=== PATIENT | female | born 1950 | race Caucasian/White ===

== ENCOUNTER 2024-12-14 09:30 | Outpatient (AMB) | payer BC, SELFPAY ==
--- OUTSIDE RECORDS SUMMARY | 2024-12-13 09:45 | XMS_ITS | Encounter Summary ---
Author Organization [facility] Address [address] [place] [address] Care Team Providers Care Windsmith Name Role Phone Isabel Butler MD Primary Care Provider Reason for Visit * Reason Comments COPD Encounter Details Date Type Department Care Team ([facility] Contact Info) Description 12/13/2024 9:45 AM EDT Office Visit Pulmonolgy - [place] [address] [phone] Ade Ashley MD [address] (Primary Dx); Chronic obstructive pulmonary disease, unspecified COPD type (CMS/HCC V24, CMS/HCC V28); Ex-smoker Social History Tobacco Use Types Packs/Day Years Used Date Smoking Tobacco: Former Cigarettes 0.3 30 0 04/06/1965 - 04/06/1995 Smokeless Tobacco: Never Tobacco Cessation:Counseling Given: Not Answered Alcohol Use Standard Drinks/Week Comments No 0 (1 standard drink = 0.6 oz pur e alcohol) Housing Instability Answer Date Recorde d Are you worried that in the next 2 months you may not have stable housing? No 08/10/2024 Food Access & Nutrition Answer Date Rec orded Do you have access to a vari ety of food including fruits and vegetables? Yes 08/10/2024 Access to Healthcare Answer Date Record ed Within the last 3 months, ho w many times did you visit the emergency department for your medical care? 0 08/10/2024 Health Literacy Answer Date Recorded How often do you need to hav e someone help you when you read instructions, pamphlets, or other written material from your doctor or pharmacy? Never 08/10/2024 Caregiver: How often do you need to have someone help you when you read instructions, pamphlets, or other written material from your doctor or pharmacy? Not on file 08/10/2024 Financial Risk Answer Date Recorded How hard is it for you to pa y for the very basics like food, housing, medical care, and air conditioning / heating? Not very hard 08/10/2024 Transportation Answer Date Recorded Has the lack of transportati on kept you from meetings, work, or from getting things needed for daily living? No Has the lack of transportati on kept you from medical appointments or from getting medications? No 08/10/2024 Social Isolation Answer Date Recorded How often do you feel lonely or isolated from th ose around you? Never 08/10/2024 Food Risk Answer Date Recorded Within the past 12 months we worried whether our food would run out before we got money to buy more. Never true 08/10/2024 Within the past 12 months th e food we bought just didn't last and we didn't have money to get more. Never true 08/10/2024 Dependent Care Answer Date Recorded Do you need help finding or paying for care for your loved ones. For example, child study team director or elderly care for an older adult? No 08/10/2024 Education Answer Date Recorded Do you think completing more education or training, like finishing a GED, going to college, or learning a trade, would be helpful for you? N/A 08/10/2024 Employment and Income Answer Date Recor ded During the last four weeks, have you been actively looking for work? No 08/10/2024 Living Situation Answer Date Recorded What is your living situation? 0 08/10/2024 Interpersonal Safety Answer Date Record ed Physical Abuse 09/06/2024 Verbal Abuse 09/06/2024 Comments Unknown Sex and Gender Information Value Date Recorded Sex Assigned at Female 08/15/2024 3:20 PM EDT Legal Sex Female 8:38 AM EST Gender Identity Female 08/15/2024 3:20 PM EDT Sexual Orientation Straight 08/15/2024 3: 20 PM EDT documented as of this encounter Last Filed Vital Signs Vital Sign Reading Time Taken Comments Blood Pressure 151/61 12/13/2024 9:45 AM EDT Pulse 60 12/13/2024 9:45 AM EDT Temperature - - Respiratory Rate 18 12/13/2024 9:45 AM EDT Oxygen Saturation 100% 12/13/2024 9:45 AM EDT Inhaled Oxygen Concentration - - Weight 48.3 kg (106 lb 6.4 oz) 12/13/2024 9:45 A M EDT Height - - Body Mass Index 18.26 11/29/2024 8:30 AM EDT documented in this encounter Progress Notes * Ade Ashley MD - 12/13/2024 9:45 AM EDT ADULT PULMONARY Followup CHIEF COMPLAINT : COPD Last seen 07/07/24 HISTORY OF PRESENT ILLNESS: Ebonie Ross is a 74 y.o. old, ex smoker @ 13 ppy, female h/o COPD w/ emphysema, lung nodules, HTN, hypothyroidism, seizure disorder, osteoporosis, compression T11 & L1and depression. Her chest ct, on 02/15/2018, several GGO nodules, largest RUL 7 x 12 mm nodules. Patient had never been seenby fruit stuffer. Patient with minimum symptom. Patient follow up chest CT, 05/27/24 increase in # & sizes of the various lung nodules. Central airways are patent. Multiple small focal lucencies in bilateral lungs, increased from 2018, reflecting progression of the centrilobular emphysema. Several groundglass nodules in the right lobe, some of them mildly increased in size, for example the largest measuring 1.7 x 1.5 cm (2:61), enlarged from prior re-measurements of 1.3 x 1.2 cm. Additionally scattered groundglass nodules, for example in the right lower lobe measures 0.8 cm (2:169), increased from prior measurement of 0.5 cm. Small group of adjacent solid nodules in the left upper lobe, largest measuring 0.6 cm (2:121), some of them probably mucous plugging, new from 2018. No gross mediastinal/hilar adenopathy. COVID vaccinations: Moderna/Pfizer. Ex Smoker: Age 18 to 45, @ 1/2 pack a day, @ 13 ppy. Extensive 2nd hand smoke exposure. No inhaled marijuana or recreational drug use. 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 No occupation chemical or fume exposure. No tuberculosis or asbestos exposure. Pets: None. FH: Father with lung cancer. Sister with lymphoma. M aternal grandfather with colon cancer. Since last seen: -Seeing Hematology & Oncology Dr. Ortega. -Hospitalized at [facility] (09/05 to 09/06/2024) for seizure. Awaiting for neurology appointment. -Awaiting for official CTX surgery re visit. -Got a call 12/12/24, by CTX surgery, I wanted to discuss this with her specifically to review the options for this finding which include resection versus ongoing surveillance. I reviewed the image with Dr. Howe who did feel this could be resected should the patient decide to do so. -Follow-up visit by IP, Dr. Cannon, on 10/18/2024 referral back to CTX surgery. -In September patient had seizure and the AED change no issue with medication weight loss. - CT chest, 09/29/24, increased RUL nodule 1.5 x 1.3 cm. There is also other nodule RUL 4 mm and 7 mm. RLL 6 mm, LLL 9 mm,. No gross mediastinal hilar adenopathy. -Was seen by CTX surgeon, Dr. Howe on 08/15/24, recommend follow-up CT chest. -Seen by IP, Dr. Cannon, on 07/22/2024, and was referred to CTX surgeon. - Blood work, 07/11/2024 WBC 5.1, hemoglobin 14.6, eosinophil count 1.8, ESR 10, IgE 7.6, QuantiFERONTB serology negative. Negative Aspergillus flavus & Aspergillus fungatius antibody. Negative recommended. REVIEW OF SYSTEMS: Review of Systems Constitutional: Negative for chills, decreased appetite, diaphoresis, fever, malaise/fatigue and night sweats. HENT: Negative for congestion. Cardiovascular: Negative for chest pain, dyspnea on exertion, irregular heartbeat and leg swelling. Respiratory: Negative for cough, hemoptysis, shortness of breath, snoring, sputum production and wheezing. Endocrine: Negative for cold intolerance and heat intolerance. Skin: Negative for rash. Gastrointestinal: Negative for abdominal pain, constipation, diarrhea and dysphagia. Genitourinary: Negative for dysuria. ALLERGIES: Allergies Allergen Reactions Codeine GI intolerance and Unknown Morphine Nausea And Vomiting and Unknown Low blood pressure Penicillins Rash ACTIVE MEDICATIONS: Outpatient Medications Marked as Taking for the 12/13/24 encounter (Office Visit) with Ade Ashley MD Medication Sig Dispense Refill amLODIPine (NORVASC) 2.5 mg tablet Take 1 tablet (2.5 mg total) by mouth 1 (one) time each day. (Patient taking differently: Take 3 tablets (7.5 mg total) by mouth 1 (one) time each day.) 90 each 0 PROVIDER ATTESTS THAT THE MEDICATION LIST WAS OBTAINED, REVIEWED AND UPDATED. PAST MEDICAL HISTORY: Patient Active Problem List Diagnosis Date Noted Hypocalcemia 09/20/2024 Hyponatremia 09/20/2024 Witnessed seizure-like activity ([facility] V24, [facility] V28) 09/05/2024 Anxiety 08/17/2024 Fracture, Col[place], right, closed 09/27/2021 Essential hypertension 01/01/2021 Hypothyroidism 06/12/2020 Seizure disorder ([facility] V24, [facility] V28) 02/10/2019 Maxillary fracture ([facility] V24, [facility] V28) 03/16/2018 Major depression in partial remission ([facility] V24) 12/30/2017 Pulmonary nodules 12/30/2017 Osteoporosis 12/30/2017 Heart murmur 11/21/2013 Left carotid bruit 11/21/2013 Past Surgical History: Procedure Laterality Date CARPAL TUNNEL RELEASE Right 02/29/2020 PROCEDURE: HISTORICAL CARPAL TUNNEL REL; COMMENT: Dr. Reyes CHOLECYSTECTOMY PROCEDURE: HISTORICAL CHOLECYSTECTOMY; COMMENT: jermain timothy OTHER SURGICAL HISTORY PROCEDURE: HISTORY OTHER; COMMENT: toe surgery, multiple WRIST SURGERY Right 09/30/2021 PROCEDURE: HISTORICAL WRIST SURGERY; COMMENT: Distal Radius Fracture Dr. Amy WALKER Past Surgical History: Procedure Laterality Date CARPAL TUNNEL RELEASE Right 02/29/2020 PROCEDURE: HISTORICAL CARPAL TUNNEL REL; COMMENT: Dr. Reyes CHOLECYSTECTOMY PROCEDURE: HISTORICAL CHOLECYSTECTOMY; COMMENT: jermain timothy OTHER SURGICAL HISTORY PROCEDURE: HISTORY OTHER; COMMENT: toe surgery, multiple WRIST SURGERY Right 09/30/2021 PROCEDURE: HISTORICAL WRIST SURGERY; COMMENT: Distal Radius Fracture ORIFDr. Reyes FAMILY HISTORY: Family History Problem Relation Name Age of Onset Stroke Mother htn Lung cancer Father Hypertension Sister lymphoma Macular degeneration Brother htn Hypertension Brother diabetes,cad Hypertension Brother Colon cancer Maternal Grandfather Blindness Neg Hx Cataracts Neg Hx Glaucoma Neg Hx Strabismus Neg Hx SOCIAL HISTORY Social History Socioeconomic History Marital status: Spouse name: Not on file Number of children: Not on file Years of education: Not on file Highest education level: Not on file Occupational History Not on file Tobacco Use Smoking status: Former Current packs/day: 0.00 Average packs/day: 0.3 packs/day for 30.0 years (7.5 ttl pk-yrs) Types: Cigarettes Start date: 04/06/1965 Quit date: 04/06/1995 Years since quittin.7 Smokeless tobacco: Never Substance and Sexual Activity Alcohol use: No Drug use: No Sexual activity: Not on file Other Topics Concern Not on file Social History Narrative Lives in a house with her and her [id number] 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 Retired. Very active with yardwork and walking. IMMUNIZATION: Immunization History Administered Date(s) Administered COVID-19 (Pfizer/Comirnaty) 12yo and older 02/02/2023, 01/21/2024 Influenza trivalent, 0.5mL (Fluad) 65yo and older 12/16/2016, 01/19/2018, 02/10/2019, 01/20/2020, 12/12/2020, 01/15/2022, 12/22/2022 Influenza trivalent, 0.5mL, preservative free (Fluarix; FluLaval; Fluzone) ages 6mo and older (Afluria) 3 years and older 02/18/2010, 01/07/2011, 01/08/2012, 01/03/2013, 11/21/2013, 01/10/2015, 02/06/2016 Pfizer (ages 12 & older) Bivalent, COVID-19 02/06/2022 Pfizer (ages 12 & older) SARS-CoV-2 COVID-19, mRNA, LNP-S, claudia-sucrose, preservative free 07/18/2021 Pfizer SARS-CoV-2 COVID-19, mRNA, LNP-S, preservative free 06/04/2020, 06/24/2020, 01/24/2021 Pneumococcal conjugate 13 valent (Prevnar 13, PCV13) 2mo and older 06/05/2016 Pneumococcal polysaccharide 23 valent (Pneumovax 23) 2yo and older 04/19/2008, 12/27/2018 Tdap Tetanus diptheria acellular pertussis (Boostrix; Adacel) 7yo and older 05/28/2009, 11/11/2019 Zoster Live 11/23/2014 PHYSICAL EXAM: Visit Vitals BP (!) 151/61 (BP Location: Right arm, Patient Position: Sitting, BP Cuff Size: Adult) Pulse 60 Resp 18 Wt 48.3 kg (106 lb 6.4 oz) SpO2 100% BMI 18.26 kg/m?? Smoking Status Former BSA 1.5 m?? Physical Exam Constitutional: General: She is not in acute distress. Appearance: Normal appearance. She is not ill-appearing. HENT: Head: Normocephalic and atraumatic. Nose: Nose normal. No congestion or rhinorrhea. Mouth/Throat: Mouth: Mucous membranes are moist. Pharynx: No oropharyngeal exudate or posterior oropharyngeal erythema. Eyes: Pupils: Pupils are equal, round, and reactive to light. Cardiovascular: Rate and Rhythm: Normal rate and regular rhythm. Pulses: Normal pulses. Heart sounds: No murmur heard. Pulmonary: Effort: Pulmonary effort is normal. No respiratory distress. Breath sounds: Normal breath sounds. No stridor. No wheezing, rhonchi or rales. Abdominal: General: Bowel sounds are normal. Palpations: Abdomen is soft. Tenderness: There is no abdominal tenderness. Musculoskeletal: Right lower leg: No edema. Left lower leg: No edema. Neurological: Mental Status: She is alert. Diagnostic: CURRENTS ICD-10 PULMONARY DIAGNOSIS 1. Abnormal chest CT 2. Chronic obstructive pulmonary disease, unspecified COPD type (CMS/[facility] V24, CMS/HCC V28) 3. Ex-smoker ASSESSMENT/PLAN: 1. Chest CT abnormalities - Reviewed and discussed, 09/29/[address] findings. -Pathophysiology, differential diagnosis, and diagnostic options regarding CT abnormality was briefly discussed. -Await for CTX surgical follow-up appointment. -Await for hematology/oncology Dr. Vernon appointment. -I also recommend patient to proceed with appointment with neurologist. 2. COPD and emphysema -Pathophysiology of COPD was discussed. Treatment options of the various inhalers, along with techniques of use, and side effects were discussed. Maintenance of care of obstructive lung disease health such as various vaccinations, smoking cessation & avoidance of chemicals/fumes/inhalants were d iscussed. All questions were answered. -Patient declined maintenance inhaler. - Continue current albuterol MDI, 2 puffs every 6 hours as needed. 3. Ex-smoker @ 13 ppy, and family history of lung cancer. - As above. -Follow up with Isabel Butler MD for the other co-morbilities. RETURN TO THE NEXT VISIT: Based on physical exam, symptomatology, tests requested and baseline pulmonary evaluation/disease, I instructed the patient to come back to see me in 6 months for reevaluation after the test has beendone or earlier if the patient needed. Thanks Isabel Butler MD for allowing me to have the opportunity to assist in the care of this patient. This chart was generated by the [employer] system and [employer] speech recognition software and may contain inherent errors or omissions not intended by the user. Grammatical errors, random word insertions, deletions, pronoun errors and incomplete sentences are occasional consequences of this technologydue to software limitations. Not all errors are caught or corrected. If there are questions or concerns about the content of this note or information contained within the body of this dictation they should be addressed directly with the author for clarification. @ELECSIG@ documented in this encounter Plan of Treatment Upcoming Encounters Date Type Department Care Team (Late st Contact Info) Description 12/16/2024 9:30 AM EDT Office Visit [facility] Hematology Oncology [address] [place] [phone] Rosa Vernon PA [address] [place] [address] 01/13/2025 11:00 AM EDT Office Visit Adult Medicine [facility] [address] [place] [address] Isabel Butler MD [address] [place] [address] 06/12/2025 9:45 AM EDT Office Visit Pulmonolgy - [place] [address] [facility] [address] [place] [address] Ade Ashley MD 175 [facility] [address] [place] [address] documented as of this encounter Visit Diagnoses Diagnosis Abnormal chest CT- Primary Nonspecific (abnormal) findings on radiological and other examination of other intrathoracic organs Chronic obstructive pulmonary disease, unspecified COPD type (CMS/HCC V24, CMS/HCC V28) Ex-smoker Personal history of tobacco use, presenting hazards to health documented in this encounter Additional Health Concerns Assessment Noted Time PHQ-9 Depression Total Score: 0 08/11/19 25 5:26 PM EDT documented as of this encounter Care Teams Windsmith Relationship Specialty Start Date End Date Isabel Butler MD [address] [place] [address] PCP - General 12/08/23 documented as of this encounter
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
--- OUTSIDE RECORDS SUMMARY | 2024-12-14 11:21 | XMS_ITS ---
Author Name [facility] Organization Unknown Care Team Organization Name Specialty Phone Email Start Date End Da te [facility] Roshni Iglesias Primary Care 04/14/2022 11/23/2023 [facility] Mirna Fry Primary Care 02/11/20222023
--- OUTSIDE RECORDS SUMMARY | 2024-12-14 11:21 | XMS_ITS | Clinical Summary ---
Author Organization [facility] [address] [place] [address] [place] [phone] Phone Care Team Providers Care Cinetechnician Name Role Phone Isabel Butler MD Primary Care Provider Allergies Active Allergy Reactions Criticality Noted Date Comments Codeine GI intolerance,Unknown 02/17/2010 Morphine Nausea And Vomiting,Unknown 02/17/2010 Low blood pressure Penicillins Rash 02/17/2010 Medications OXcarbazepine (TRILEPTAL) 150 mg tablet Take 1 tablet (150 mg total) by mouth 2 (two) times a day. 06/17/19 23 Active albuterol HFA (PROAIR HFA ; PROVENTIL HFA ; VENTOLIN HFA) 90 mcg/actuation inhaler Inhale 2 puffs by mouth every 6 (six) hours if needed for wheezing or shortness of breath. 1 each 07/08/19 25 026 Active PARoxetine (PaxiL) 10 mg tablet Take 1 tablet (10 mg total) by mouth 1 (one) time each day in the morning. 90 each 08/18/19 25 025 Active amLODIPine (NORVASC) 2.5 mg tablet Take 1 tablet (2.5 mg total) by mouth 1 (one) time each day. 90 each 09/21/19 25 025 Active Additional Information Patient taking differently: 7.5 mgoral Daily, Reported on 12/13/2024 levothyroxine (SYNTHROID, LEVOTHROID) 50 mcg tablet TAKE ONE TABLET BY MOUTH EVERY DAY 90 tablet 1 10/27/19 25 Active alendronate (FOSAMAX) 70 mg tablet TAKE 1 TABLET EVERY 7 DAYS 12 tablet 1 11/23/19 25 Active alendronate (FOSAMAX) 70 mg tablet TAKE ONE TABLET BY MOUTH EVERY 7 DAYS 12 tablet 08/05/19 25 025 Discontinued Active Problems Problem Noted Date Diagnosed Date Hypocalcemia 09/20/2024 Hyponatremia 09/20/2024 Witnessed seizure-like activity ([facility] V24, S/[facility] V28) 09/05/2024 Anxiety 08/17/2024 Fracture, Colles, right, closed 09/27/2021 Essential hypertension 01/01/2021 Hypothyroidism 06/12/2020 Seizure disorder ([facility] V24, [facility] V28) 10/2018 Maxillary fracture ([facility] V24, [facility] V28) Major depression in partial remission ([facility] V 24) 12/30/2017 Pulmonary nodules 12/30/2017 Osteoporosis 12/30/2017 Heart murmur 11/21/2013 Left carotid bruit 11/21/2013 Encounters Date Type Department Care Team Description 12/13/2024 9:45 AM EDT Office Visit Pulmonolgy - [place] 175 [facility] [address] [place] [phone] Ade Ashley MD Abnormal chest CT (Primary Dx); Chronic obstructive pulmonary disease, unspecified COPD type ([facility] V24, [facility] V28); Ex-smoker 11/29/2024 8:30 AM EDT Office Visit [facility] Hematology Oncology [address] [place] [phone] Rosa Vernon PA Lymphopenia (Primary Dx) 10/18/2024 8:30 AM EDT Office Visit Pulmonology - [place] 299 [facility] [address] [place] [phone] Vida Cannon MD Pulmonary nodules (Primary Dx); Pulmonary emphysema, unspecified emphysema type ([facility] V24, [facility] V28) 09/29/2024 8:02 AM EDT - 09/29/2024 11:59 PM EDT Hospital Encounter [facility] CT Scan [address] [place] [phone] Localized swelling, mass and lump, neck Discharge Disposition: Home or Self Care 09/29/2024 8:02 AM EDT - 09/29/2024 11:59 PM EDT Hospital Encounter [facility] CT Scan [address] [place] [phone] Pulmonary nodules Discharge Disposition: Home or Self Care 09/20/2024 9:00 AM EDT Office Visit Adult Medicine [address] [phone] Isabel Butler MD Primary hypertension (Primary Dx); Leukocytosis, unspecified type; Hypothyroidism, unspecified type; Hyponatremia; Hypocalcemia; Sinus bradycardia from Last 3 Months Immunizations Name Administration Dates Next Due Influenza trivalent, 0.5mL ( Fluad) 65yo and older 12/22/2022,01/15/2022,12/12/2020,01/19,02/10/2019,01/19/2018,12/16/2016 Influenza trivalent, 0.5mL, preservative free (Fluarix; FluLaval; Fluzone) ages 6mo and older (Afluria) 3 years and older 02/06/2016,01/10/2015,11/21/2013,01/03,01/08/2012,01/07/2011,02/18/2010 GoYoDeo SARS-CoV-2 COVID-19, mRNA, LNP-S, preservative free 01/24/2021 Pneumococcal conjugate 13 va lent (Prevnar 13, PCV13) 2mo and older 06/05/2016 Pneumococcal polysaccharide 23 valent (Pneumovax 23) 2yo and older 12/27/2018,04/19/2008 Tdap Tetanus diptheria acell ular pertussis (Boostrix; Adacel) 7yo and older 11/11/2019,05/28/2009 Zoster Live 11/23/2014 Surgical History Surgery Date Site/Laterality Comments CHOLECYSTECTOMY PROCEDURE: HISTORICAL CHOLECYSTECTOMY; COMMENT: lap timothy OTHER SURGICAL HISTORY PROCEDURE: HISTORY OTHER; COMMENT: toe surgery, multiple CARPAL TUNNEL RELEASE 02/29/2020 Right PROCEDURE: HISTORICAL CARPAL TUNNEL REL; COMMENT: Dr. Reyes WRIST SURGERY 09/30/2021 Right PROCEDURE: HISTORICAL WRIST SURGERY; COMMENT: Distal Radius Fracture ORIF, Dr. Reyes Medical History Medical History Date Comments Subclinical hypothyroidism 09/21/2017 DX:Muro bclinical hypothyroidism Heart murmur 11/21/2013 DX:Heart murmur Left carotid bruit 11/21/2013 DX:Left carot id bruit Major depression in partial remission ([facility] V24) 12/30/2017 DX:Major depression in parti al remission ([facility]) Osteopenia 12/30/2017 DX:Osteopenia Pulmonary nodules 12/30/2017 DX:Pulmonary n odules History of herpes zoster 03/16/2018 DX:Hist ory of herpes zoster History of concussion 03/16/2018 DX:History of concussion Maxillary fracture ([facility] V24, [facility] V28) 03/16/2018 DX:Maxillary fracture ([facility]) Essential hypertension 01/01/2021 DX:Essent ial hypertension Family History Medical History Relation Name Comments Macular degeneration Brother 1 htn Hypertension Brother 2 diabetes,cad Hypertension Brother 3 Lung cancer Father Colon cancer Maternal Grandfather Stroke Mother htn Hypertension Sister lymphoma Blindness Neg Hx Cataracts Neg Hx Glaucoma Neg Hx Strabismus Neg Hx Relation Name Status Comments Brother 1 Alive Brother 2 Alive Brother 3 Alive Father Maternal Grandfather Maternal Grandmother Mother Paternal Grandfather Paternal Grandmother Sister Alive Social History Tobacco Use Types Packs/Day Years [...] for your loved ones. For example, child welfare counselor or elderly care for an older adult? [...] Orientation Straight 08/15/2024 3: 20 PM EDT Obstetrics History Last Filed Vital Signs Vital Sign Reading Time Taken Comments Blood Pressure 151/61 12/13/2024 9:45 AM EDT Pulse 60 12/13/2024 9:45 AM EDT Temperature 36.5 C (97.7 F) 11/29/2024 8:30 AM EDT Respiratory Rate 18 12/13/2024 9:45 AM EDT Oxygen Saturation 100% 12/13/2024 9:45 AM EDT Inhaled Oxygen Concentration - - Weight 48.3 kg (106 lb 6.4 oz) 12/13/2024 9:45 A M EDT Height 162.6 cm (5' 4 ) 11/29/2024 8:30 AM EDT Body Mass Index 18.26 11/29/2024 8:30 AM EDT Plan of Treatment Upcoming Encounters Date Type Department Care Team (Late st Contact Info) Description 12/16/2024 9:30 AM EDT Office Visit [facility] Hematology Oncology [address] [place] [phone] Rosa Vernon PA [address] [place] [address] 01/13/2025 11:00 AM EDT [place] [facility] [place] [address] [place] [phone] Isabel Butler MD [address] [place] [address] 06/12/2025 9:45 AM EDT Office Visit Pulmonolgy - [place] [address] [phone] Ade Ashley MD [address] [address] Health Maintenance Due Date Last Done Comments Zoster Vaccines (2 of 3) 01/18/2015 11/23/2014 Medicare Annual Wellness Visit 03/15/2022 Breast Cancer Screening 09/30/2022 09/30/2020 COVID-19 Vaccine ( season) 2024 01/21/2024, 02/02/2023, 02/06/2022, Additional history exists Influenza Vaccine (#1) 2024 , 12/22/2022, 01/15/2022, Additional history exists Social Influencers of Health Screening 08/10/2025 08/10/2024 Falls Risk Assessment 09/06/2025 09/06/2024 Hypertension/CHF/CAD Annual BMP Blood Test 09/23/2025 09/23/2024, 09/21/2024, 09/06/2024, Additional history exists Colorectal Cancer Screening: Colonoscopy 01/23/2026 01/24/2016 Cholesterol Screening (Lipid Panel) 06/29/2028 06/30/2023 DTaP,Tdap,and Td Vaccines (3 - Td or Tdap) 11/10/2029 11/11/2019, 05/28/2009 Osteoporosis Screening (Bone Density Screening) 06/24/2033 06/25/2023, 06/25/2023 Pneumococcal Vaccine: 50+ Years Completed 12/27/2018, 06/05/2016, 04/19/2008 RSV Immunization Adult Patients Completed 02/17/2023 Depression Screening Completed 08/10/2024 Hepatitis C Screening Completed 11/29/2024 HIB Vaccines Aged Out No longer eligi ble based on patient's age to complete this topic HPV Vaccines Aged Out No longer eligi ble based on patient's age to complete this topic Hepatitis A Vaccines Aged Out No long er eligible based on patient's age to complete this topic Hepatitis B Vaccines Aged Out No long er eligible based on patient's age to complete this topic IPV Vaccines Aged Out No longer eligi ble based on patient's age to complete this topic MMR Vaccines Aged Out No longer eligi ble based on patient's age to complete this topic Meningococcal ACWY Vaccine Aged Out N o longer eligible based on patient's age to complete this topic Meningococcal B Vaccine Aged Out No l onger eligible based on patient's age to complete this topic RSV Immunization Patients Under 20 months Aged Out No longer eligible based on patient's age to complete this topic Varicella Vaccines Aged Out No longer eligible based on patient's age to complete this topic Procedures Procedure Name Priority Date/Time Associated Diagnosis Comments CBC WITH AUTO DIFFERENTIAL Routine 11/29/2024 9:17 AM EDT Lymphopenia RHEUMATOID FACTOR Routine 11/29/2024 9:1 7 AM EDT Lymphopenia HIV 1, 2 ANTIBODY, P24 ANTIGEN WITH REFLEX TO DIFFERENTIATION Routine 11/29/2024 9:17 AM EDT Lymphopenia HEPATITIS PANEL, ACUTE WITH REFLEX TO CONFIRMATION Routine 11/29/2024 9:17 AM EDT Lymphopenia REBEKAH IFA WITH TITER AND PATTERN Routine 11/29/2024 9:17 AM EDT Lymphopenia CBC AND DIFFERENTIAL Routine 11/29/2024 9:[address] NECK SOFT TISSUE W CONTRAST Routine 09/29/2024 8:18 AM EDT Localized swelling, mass and lump, neck CT CHEST WO CONTRAST Routine 09/29/2024 8:12 AM EDT Pulmonary nodules BASIC METABOLIC PANEL Routine 09/23/2024 9:32 AM EDT Hyponatremia CBC WITH AUTO DIFFERENTIAL Routine 09/21/2024 9:54 AM EDT Leukocytosis, unspecified type CBC AND DIFFERENTIAL Routine 09/21/2024 9:54 AM EDT Leukocytosis, unspecified type THYROID STIMULATING HORMONE WITH REFLEX TO FREE T4 AND FREE T3 Routine 09/21/2024 9:54 AM EDT Hypothyroidism, unspecified type BASIC METABOLIC PANEL Routine 09/21/2024 9:54 AM EDT Hyponatremia CALCIUM, IONIZED Routine 09/21/2024 9:54 AM EDT Hypocalcemia DXA BONE DENSITY STUDY 1+ SITS AXIAL SKEL Routine 06/25/2023 11:14 AM EDT Age-related osteoporosis without current pathological fracture from Last 3 Months or Most Recently Relevant to Health Maintenance Results * HIV 1,2 antibody, p24 antigen with reflex to differentiation (11/29/2024 9:17 AM EDT) Pathologist [facility] HIV Combo AB/AG Negative Negative LAB CHEMISTRY METHOD 11/29/2024 2:52 PM EDT [facility] Blood Venous blood specimen / Unknown Venipuncture / Unknown 11/29/2024 9:17 AM EDT 11/29/2024 11:31 AM EDT Narrative [facility] - 11/29/2024 2:52 PM EDT This assay is a 4th generation assay allowing for earlier detection of HIV infection by detecting the presence of the HIV-1 p24 antigen as well as the traditional antibodies to HIV type 1 (including group O) and type 2. Use of a 4th generation assay is the current CDC recommendation for HIV screening. us Rosa RUIZ LAB BLOOD ORDERABLES Final Re sult [facility] [address] [place] [address], [place] [phone] * Hepatitis panel, acute with reflex to confirmation (11/29/2024 9:17 AM EDT) [facility] Hepatitis B Surface Ag Negative Negative LAB CHEMISTRY METHOD 11/29/2024 4:05 PM EDT [facility] Hepatitis A Antibody IgM Negative Negative LAB CHEMISTRY METHOD 11/29/2024 4:05 PM EDT [facility] Hep B Core IgM Negative Negative LAB CHEMISTRY METHOD 11/29/2024 4:05 PM EDT [facility] Hepatitis C Antibody Negative Negative LAB CHEMISTRY METHOD 11/29/2024 4:05 PM EDT [facility] Blood Venous blood specimen / Unknown Venipuncture / Unknown 11/29/2024 9:17 AM EDT 11/29/2024 11:31 AM EDT Rosa RUIZ LAB BLOOD ORDERABLES Final Re sult Performing Organization Address City/[facility]/ZIP Co de Phone Number [facility] [address] [place] [address], * REBEKAH IFA with titer and pattern (11/29/2024 9:17 AM EDT) [facility] REBEKAH Negative Negative 11/30/2024 1:59 PM EDT [facility] Comment:REBEKAH performed by ind irect immunofluorescence (IFA) using HEp-2 substrate. Blood Venous blood specimen / Unknown Venipuncture / Unknown 11/29/2024 9:17 AM EDT 11/29/2024 11:31 AM EDT Rosa RUIZ LAB BLOOD ORDERABLES Final Re sult Performing Organization Address [facility]/ZIP Co de Phone Number [facility] [address] [place] [address], [place] [phone] * (ABNORMAL) CBC auto differential (11/29/2024 9:17 AM EDT) Only the most recent of2 resultswithin the time period is included. [facility] WBC 6.0 4.8 - 10.8 K/mcL LAB HEMETOLOGY METHOD 11/29/2024 11:38 AM EDT [facility] RBC 4.50 3.80 - 4.80 M/mcL LAB HEMETOLOGY METHOD 11/29/2024 11:38 AM EDT [facility] Hemoglobin 13.3 11.5 - 16.0 g/dL LAB HEMETOLOGY METHOD 11/29/2024 11:38 AM EDT [facility] Hematocrit 41.7 35.0 - 47.0 % LAB HEMETOLOGY METHOD 11/29/2024 11:38 AM EDT [facility] MCV 93.5 79.0 - 98.0 FL LAB HEMETOLOGY METHOD 11/29/2024 11:38 AM EDT [facility] MCH 29.8 27.0 - 32.0 pcg LAB HEMETOLOGY METHOD 11/29/2024 11:38 AM [facility] MCHC 31.9(L) 32.0 - 37.0 g/dL LAB HEMETOLOGY METHOD 11/29/2024 11:38 AM [facility] RDW 13.7 11.0 - 15.0 % LAB HEMETOLOGY METHOD 11/29/2024 11:38 AM [facility] Platelets 214 130 - 400 K/mcL LAB HEMETOLOGY METHOD 11/29/2024 11:38 AM [facility] MPV 11.8(H) 7.0 - 11.0 FL LAB HEMETOLOGY METHOD 11/29/2024 11:38 AM [facility] NRBC 0.0 <1.0 % LAB HEMETOLOGY METHOD 11/29/2024 11:38 AM [facility] NRBC Absolute 0.00 <0.10 K/mcL LAB HEMETOLOGY METHOD 11/29/2024 11:38 AM [facility] Neutrophils Relative 70.5 % LAB HEMETOLOGY METHOD 11/29/2024 11:38 AM [facility] Lymphocytes Relative 17.4 % LAB HEMETOLOGY METHOD 11/29/2024 11:38 AM [facility] Monocytes Relative 9.0 % LAB HEMETOLOGY METHOD 11/29/2024 11:38 AM [facility] Eosinophils Relative 1.5 % LAB HEMETOLOGY METHOD 11/29/2024 11:38 AM [facility] Basophils Relative 1.3 % LAB HEMETOLOGY METHOD 11/29/2024 11:38 AM [facility] Immature Granulocytes Relative 0.3 % LAB HEMETOLOGY METHOD 11/29/2024 11:38 AM EDT [facility] Neutrophils Absolute 4.25 1.50 - 7.00 K/mcL LAB HEMETOLOGY METHOD 11/29/2024 11:38 AM EDT [facility] Lymphocytes Absolute 1.05 1.00 - 5.00 K/mcL LAB HEMETOLOGY METHOD 11/29/2024 11:38 AM EDT [facility] Monocytes Absolute 0.54 0.20 - 1.00 K/mcL LAB HEMETOLOGY METHOD 11/29/2024 11:38 AM EDT [facility] Eosinophils Absolute 0.09 0.00 - 0.50 K/mcL LAB HEMETOLOGY METHOD 11/29/2024 11:38 AM EDT [facility] Basophils Absolute 0.08 0.00 - 0.20 K/mcL LAB HEMETOLOGY METHOD 11/29/2024 11:38 AM EDT [facility] Immature Granulocytes Absolute 0.02 0.00 - 0.03 K/mcL LAB HEMETOLOGY METHOD 11/29/2024 11:38 AM EDT [facility] Blood Venous blood specimen / Unknown Venipuncture / Unknown 11/29/2024 9:17 AM EDT 11/29/2024 11:31 AM EDT us Rosa RUIZ LAB BLOOD ORDERABLES Final Re sult [facility] [address] [place] [address], * Rheumatoid factor (11/29/2024 9:17 AM EDT) Rheumatoid Factor <10.0 <15.0 I Unit/mL LAB CHEMISTRY METHOD 11/29/2024 5:38 PM EDT [facility] Blood Venous blood specimen / Unknown Venipuncture / Unknown 11/29/2024 9:17 AM EDT 11/29/2024 11:31 AM EDT us Rosa RUIZ LAB BLOOD ORDERABLES Final Re sult [facility] [address] [place] [address], [place] [phone] * CT Neck Soft Tissue w Contrast (09/29/2024 8:18 AM EDT) Anatomical Region Laterality Modality Head and Neck Computed Tomogra phy 09/29/2024 11:1 2 AM EDT Impressions 09/29/2024 11:34 AM EDT 1. Nonspecific soft tissue nodule superficial to the left maxilla. The nodule appears hyperattenuating and is suspected to be partially calcified, but is difficult to evaluate secondary to streak artifact from dental amalgam. Presumably correlates with findings noted on a comparison ultrasound, but images from that study are not available for comparison. 2. Several groundglass nodules at the right lung apex; please see the accompanying chest CT report. -------- FINAL REPORT -------- Dictated By: Milton Strange Dictated Date: 09/29/2024 11:12 ET Assigned Physician: Milton Strange Reviewed and Electronically Signed By: Milton Strange Signed Date: 09/29/2024 11:34 ET Workstation ID: [id number] Transcribed By: Self Edit Transcribed Date: 09/29/2024 11:12 ET Narrative 09/29/2024 11:34 AM EDT PROCEDURE: Contrast enhanced CT of the neck. HISTORY: LOCALIZED SWELLING MASS AND LUMP. TECHNIQUE: CT of the neck with coronal and sagittal reformats. IV CONTRAST DOSE: 90 mL ISOVUE-370. Dose length product: 283 mGy-cm. COMPARISON: Ultrasound report dated 10/15/2023; images from that study are not available for comparison. FINDINGS: The visualized portions of the brain are normal. Orbits are normal. Small mucous retention cysts in the medial left maxillary antrum. The mastoids and middle ear spaces are clear. The skull base foramina are normal. The parotid and submandibular glands are normal. The thyroid gland is normal. The mucosal surfaces of the neck are normal. There is a 12 x 9 mm hyperattenuating nodule superficial to the left maxilla. This is suspected to be partially calcified. It is not well evaluated due to streak artifact from adjacent dental amalgam. This likely correlates with a finding noted on the comparison ultrasound report; images from that study are not available for comparison. No cervical lymphadenopathy. No fluid collection. The major arteries and veins of the neck demonstrate normal opacification following contrast administration. Scattered atherosclerotic calcifications. The visualized portions of the mediastinum are normal. There are several groundglass nodules and a small thin-walled cyst at the right lung apex ; see accompanying chest CT report. Degenerative changes of the cervical spine. No suspicious bony lesion. Procedure Note Milton Strange MD - 09/29/2024 PROCEDURE: Contrast enhanced CT of the neck. HISTORY: LOCALIZED SWELLING MASS AND LUMP. TECHNIQUE: CT of the neck with coronal and sagittal reformats. IV CONTRAST DOSE: 90 mL ISOVUE-370. Dose length product: 283 mGy-cm. COMPARISON: Ultrasound report dated 10/15/2023; images from that study arenot available for comparison. FINDINGS: The visualized portions of the brain are normal. Orbits are normal. Small mucous retention cysts in the medial left maxillary antrum. Themastoids and middle ear spaces are clear. The skull base foramina arenormal. The parotid and submandibular glands are normal. The thyroid gland isnormal. The mucosal surfaces of the neck are normal. There is a 12 x 9 mm hyperattenuating nodule superficial to the leftmaxilla. This is suspected to be partially calcified. It is not wellevaluated due to streak artifact from adjacent dental amalgam. Thislikely correlates with a finding noted on the comparison ultrasoundreport; images from that study are not available for comparison. No cervical lymphadenopathy. No fluid collection. The major arteries and veins of the neck demonstrate normal opacificationfollowing contrast administration. Scattered atheroscleroticcalcifications. The visualized portions of the mediastinum are normal. There are severalgroundglass nodules and a small thin-walled cyst at the right lung apex ;see accompanying chest CT report. Degenerative changes of the cervical spine. No suspicious bony lesion. IMPRESSION: 1. Nonspecific soft tissue nodule superficial to the left maxilla. Thenodule appears hyperattenuating and is suspected to be partiallycalcified, but is difficult to evaluate secondary to streak artifact fromdental amalgam. Presumably correlates with findings noted on a comparisonultrasound, but images from that study are not available for comparison. 2. Several groundglass nodules at the right lung apex; please see theaccompanying chest CT report. -------- FINAL REPORT -------- Dictated By: Milton Strange Dictated Date: 09/29/2024 11:12 ET Assigned Physician: Milton Strange Reviewed and Electronically Signed By: Milton Strange Signed Date: 09/29/2024 11:34 ET Workstation ID: [id number] Transcribed By: Self Edit Transcribed Date: 09/29/2024 11:12 ET us Urbano Rondon MD IMG CT PROCEDURES Final Result * CT Chest wo Contrast (09/29/2024 8:12 AM EDT) Anatomical Region Laterality Modality Body Computed Tomogra phy 09/29/2024 11:3 4 AM EDT Impressions 09/29/2024 11:51 AM EDT 1. Scattered groundglass nodules in both lungs, most numerous in the right upper lobe. Some have increased in size compared with the 2018 study. 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 2. Scattered pulmonary nodules suspected represent areas of mucus plugging. The most prominent are in the posterior left upper lobe. These can be followed. 3. Mild interval enlargement of a calcified mass in the right 5th posterior intercostal space. 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 4. Interval T12 compression fracture, exact age indeterminate. A retropulsed fracture fragment results in moderate narrowing of the spinal canal. -------- FINAL REPORT -------- Dictated By: Milton Strange Dictated Date: 09/29/2024 11:34 ET Assigned Physician: Milton Strange Reviewed and Electronically Signed By: Milton Strange Signed Date: 09/29/2024 11:51 ET Workstation ID: [id number] Transcribed By: Self Edit Transcribed Date: 09/29/2024 11:34 ET Narrative 09/29/2024 11:51 AM EDT PROCEDURE: CT of the chest without intravenous contrast. TECHNIQUE: CT of the chest without intravenous contrast administration. Coronal and sagittal reformats and MIP reconstructions were created. Dose length product: 104 mGy-cm. HISTORY: Lung nodule, 6-8mm COMPARISON: 02/15/2018. And outside CT report dated 05/27/2024 is reviewed the images from that study are not available for comparison. FINDINGS: LUNGS/PLEURA: The central airways are clear and normal in caliber. Mild scarring at the lung apices. There are several groundglass nodules, most numerous at the right lung apex. For example: The largest is a 1.5 x 1.3 cm nodule on series 3 image 62, which previously measured 1.3 x 0.9 cm. A 4 mm nodule on series 3, image 64, is less confluent on the previous study. A 7 x 6 mm nodule on image 68 is larger, previously measuring 4 x 4 mm. A 6 mm right lower lobe nodule on image 148 is larger, previously measuring 4 mm. A 9 mm left lower lobe nodule on image 128 is also larger, previously measuring 5 mm. There is a right-sided Bochdalek hernia with adjacent compressive atelectasis. Scattered foci of small airways mucus plugging, most prominent groundglass nodules in the left lower lobe, image 193, suggesting small airways mucus plugging. Clustered nodules in the posterior left upper lobe (image 102) suspected to represent small airways mucus plugging as well, not present on the previous study. Scattered thin-walled parenchymal cysts. No pleural effusion or pneumothorax. MEDIASTINUM/MICHELLE: No mediastinal mass or lymphadenopathy. No appreciable hilar lymphadenopathy on limited noncontrast evaluation. VASCULATURE: Moderately enlarged central pulmonary arteries. Mild aortic annular calcifications. Normal appearance of the aorta and great vessels. CARDIAC: Normal heart size. No coronary artery calcification. CHEST WALL: No axillary or supraclavicular lymphadenopathy. There is a slowly enlarging peripherally calcified mass in the right 5th intercostal space measuring 13 mm, previously 10 mm. LIMITED ABDOMEN: Scattered low-attenuation liver lesions, probably cysts but too small for definitive characterization. Cholecystectomy. Atherosclerotic calcifications of the aorta. BONES: Degenerative changes of the spine. There is a stable mild superior endplate deformity at T7. Stable compression deformity at T11. New compression deformity at T12 with approximately 50% height loss and 8 mm of retropulsion of a fracture fragment arising from the superior endplate, which results in moderate narrowing of the spinal canal. Stable L1 compression deformity. Procedure Note Milton Strange MD - 09/29/2024 PROCEDURE: CT of the chest without intravenous contrast. TECHNIQUE: CT of the chest without intravenous contrast administration.Coronal and sagittal reformats and MIP reconstructions were created. Dose length product: 104 mGy-cm. HISTORY: Lung nodule, 6-8mm COMPARISON: 02/15/2018. And outside CT report dated 05/27/2024 isreviewed the images from that study are not available for comparison. FINDINGS: LUNGS/PLEURA: The central airways are clear and normal in caliber. Mildscarring at the lung apices. There are several groundglass nodules, mostnumerous at the right lung apex. For example: The largest is a 1.5 x 1.3 cm nodule on series 3 image 62, whichpreviously measured 1.3 x 0.9 cm. A 4 mm nodule on series 3, image 64, is less confluent on the previousstudy. A 7 x 6 mm nodule on image 68 is larger, previously measuring 4 x 4 mm. A 6 mm right lower lobe nodule on image 148 is larger, previouslymeasuring 4 mm. A 9 mm left lower lobe nodule on image 128 is also larger, previouslymeasuring 5 mm. 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 Scattered foci of small airways mucus plugging, most prominent groundglassnodules in the left lower lobe, image 193, suggesting small airways mucusplugging. Clustered nodules in the posterior left upper lobe (image 102)suspected to represent small airways mucus plugging as well, not presenton the previous study. Scattered thin-walled parenchymal cysts. No pleural effusion orpneumothorax. MEDIASTINUM/MICHELLE: No mediastinal mass or lymphadenopathy. No appreciablehilar lymphadenopathy on limited noncontrast evaluation. VASCULATURE: Moderately enlarged central pulmonary arteries. Mild aorticannular calcifications. Normal appearance of the aorta and greatvessels. CARDIAC: Normal heart size. No coronary artery calcification. CHEST WALL: No axillary or supraclavicular lymphadenopathy. There is aslowly enlarging peripherally calcified mass in the right 5th intercostalspace measuring 13 mm, previously 10 mm. LIMITED ABDOMEN: Scattered low-attenuation liver lesions, probably cystsbut too small for definitive characterization. Cholecystectomy.Atherosclerotic calcifications of the aorta. BONES: Degenerative changes of the spine. There is a stable mild superiorendplate deformity at T7. Stable compression deformity at T11. Newcompression deformity at T12 with approximately 50% height loss and 8 mmof retropulsion of a fracture fragment arising from the superior endplate,which results in moderate narrowing of the spinal canal. Stable [id number] deformity. IMPRESSION: 1. Scattered groundglass nodules in both lungs, most numerous in theright upper lobe. Some have increased in size compared with the 2018study. 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 2. Scattered pulmonary nodules suspected represent areas of mucusplugging. The most prominent are in the posterior left upper lobe. Thesecan be followed. 3. Mild interval enlargement of a calcified mass in the right 5thposterior intercostal space. 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 4. Interval T12 compression fracture, exact age indeterminate. Aretropulsed fracture fragment results in moderate narrowing of the spinalcanal. -------- FINAL REPORT -------- Dictated By: Milton Strange Dictated Date: 09/29/2024 11:34 ET Assigned Physician: Milton Strange Reviewed and Electronically Signed By: Milton Strange Signed Date: 09/29/2024 11:51 ET Workstation ID: [id number] Transcribed By: Self Edit Transcribed Date: 09/29/2024 11:34 ET us Chas Howe MD IM CT PROCEDURES Final Result * Basic metabolic panel (09/23/2024 9:32 AM EDT) Only the most recent of2 resultswithin the time period is included. Sodium 135 133 - 145 mmol/L LAB CHEMISTRY METHOD 09/23/2024 1:53 PM EDT [facility] Potassium 4.3 3.5 - 5.5 mmol/L LAB CHEMISTRY METHOD 09/23/2024 1:53 PM EDT [facility] Chloride 101 96 - 110 mmol/L LAB CHEMISTRY METHOD 09/23/2024 1:53 PM [facility] CO2 27 21 - 32 mmol/L LAB CHEMISTRY METHOD 09/23/2024 1:53 PM [facility] Anion Gap 7 3 - 11 LAB CHEMISTRY METHOD 09/23/2024 1:53 PM EDT [facility] Glucose 91 70 - 100 mg/dL LAB CHEMISTRY METHOD 09/23/2024 1:53 PM [facility] BUN 16 5 - 25 mg/dL LAB CHEMISTRY METHOD 09/23/2024 1:53 PM [facility] Creatinine 0.56 0.50 - 1.10 mg/dL LAB CHEMISTRY METHOD 09/23/2024 1:53 PM [facility] eGFR 97 >=60 mL/min/1. 73m2 LAB CHEMISTRY METHOD 09/23/2024 1:53 PM [facility] Comment:Calculation based on the Chronic Kidney Disease Epidemiology Collaboration (CKD-EPI) equation refit without adjustment for race. BUN/Creatinine Ratio 28.6 LAB CHEMISTRY METHOD 09/23/2024 1:53 PM [facility] Calcium 8.5 8.5 - 10.5 mg/dL LAB CHEMISTRY METHOD 09/23/2024 1:53 PM [facility] Blood Venous blood specimen / Unknown Venipuncture / Unknown 09/23/2024 9:32 AM EDT 09/23/2024 9:32 AM EDT us Isabel Butler MD LAB BLOOD ORDERABLES Final Result [facility] [address] [place] [address], * Thyroid stimulating hormone with reflex to free t4 and free t3 (09/21/2024 9:54 AM EDT) TSH 2.08 0.40 - 4.00 mcIU/mL LAB CHEMISTRY METHOD 09/21/2024 4:30 PM EDT [facility] Blood Venous blood specimen / Unknown Venipuncture / Unknown 09/21/2024 9:54 AM EDT 09/21/2024 9:54 AM EDT Isabel Butler MD LAB BLOOD ORDERABLES Final Result [facility] [address] [place] [address], [place] [phone] * Calcium, ionized (09/21/2024 9:54 AM EDT) Calcium Ionized 4.8 4.6 - 5.4 mg/dL 09/26/2024 12:20 PM EDT [facility] Comment: Test performed at [facility], [address] [place] [address] Aruna Lee MD, PhD - Park Worker Supervisor Blood Venous blood specimen / Unknown Venipuncture / Unknown 09/21/2024 9:54 AM EDT 09/21/2024 9:54 AM EDT Isabel Butler MD LAB BLOOD ORDERABLES Final Result [facility] [address] [place] [address] * DXA BONE DENSITY STUDY 1+ SITS AXIAL SKEL (06/25/2023 11:14 AM EDT) Anatomical Region Laterality Modality Bone Densitometr y 12/22/2022 10:3 0 AM EDT Narrative 06/25/2023 7:46 PM EDT STUDY: DUAL ENERGY X-RAY ABSORPTIOMETRY / DXA REASON FOR EXAM: Female, 73 years old osteoporosis TECHNIQUE: Bone Mineral Density (BMD) measurements of the lumbar spine and left hip were obtained using [employer] Discovery W (S/N [id number]). COMPARISON: None FINDINGS: L1-L4 BMD: 0.815 g/cm2 L1-L4 T score: -2.1. This corresponds to osteopenia. Left femoral neck BMD: 0.557 g/cm2 Left femoral neck T score: -2.6. This corresponds to osteoporosis. Left total hip BMD: 0.739 g/cm2 Left total hip T score: -1.7. This corresponds to osteopenia. IMPRESSION: IMPRESSION: Osteoporosis Reference Information: The T-score is the number of standard deviations above or below the standard which is normal for young adults at their peak bone mineral density. The World Health Organization (WHO) interprets the T-scores as follows: At or above -1 SD Normal bone density Between -1 and -2.5 SD Osteopenia At or below -2.5 SD Osteoporosis Procedure Note Earnestine Chapa MD - 11/23/2023 STUDY: DUAL ENERGY X-RAY ABSORPTIOMETRY / DXA REASON FOR EXAM: Female, 73 years old osteoporosis TECHNIQUE: Bone Mineral Density (BMD) measurements of the lumbar spineand left hip were obtained using [employer] W (S/N [id number]). COMPARISON: None FINDINGS: L1-L4 BMD: 0.815 g/cm2 L1-L4 T score: -2.1. This corresponds to osteopenia. Left femoral neck BMD: 0.557 g/cm2 Left femoral neck T score: -2.6. This corresponds to osteoporosis. Left total hip BMD: 0.739 g/cm2 Left total hip T score: -1.7. This corresponds to osteopenia. IMPRESSION: IMPRESSION: Osteoporosis Reference Information: The T-score is the number of standard deviations above or below thestandard which is normal for young adults at their peak bone mineral density. The World HealthOrganization (WHO) interprets the T-scores as follows: At or above -1 SD Normal bone density Between -1 and -2.5 SD Osteopenia At or below -2.5 SD Osteoporosis Mirna Fry MD IM DXA PROCEDURES Final Result from Last 3 Months or Most Recently Relevant to Health Maintenance Insurance [employer] - [place] MEDICARE ADVANTAGE Advance Directives * Full Code - Default (Latest Code Status on File) Date Activated Date Inactivated Comments 09/05/2024 10:56 PM 09/06/2024 6:28 PM This is order is used when code status has not been discussed with the patient, or code status is otherwise unknown/unconfirmed To update the patient's code status, place a code status order. Do not modify or discontinue any currently active code status orders. Care Teams Cinetechnician Relationship Specialty Start Date End Date Isabel Butler MD [address] [place] [address] PCP - General 12/08/23
--- OUTSIDE RECORDS SUMMARY | 2024-12-14 11:21 | XMS_ITS | Clinical Summary ---
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 Name Role Phone Unavailable Primary Care Provider Unavailabl e Social History Tobacco Use Types Packs/Day Years Used Date Smoking Tobacco: Never Assessed Comments Unknown Sex and Gender Information Value Date Recorded Sex Assigned at Not on file Legal Sex Female 9:28 AM EDT Gender Identity Not on file Sexual Orientation Not on file Plan of Treatment Upcoming Encounters Date Type Department Care Team (Late st Contact Info) Description 12/20/2024 9:30 AM EDT Office Visit [facility] Department of Otolaryngology [address] [place] [address] Jem Kumar MD [address] [place] [address] [place] [address] Health Maintenance Due Date Last Done Comments Bone Density Screening 1951 Breast Cancer Screening 1951 CT Colonography 1950 Colonoscopy 1950 Colorectal Cancer Screening 1950 FIT-DNA (Cologuard) 1950 FIT 1950 FOBT 1950 Flex Sigmoidoscopy - 6y 1950 HIV Screening 1950 Hepatitis C Screening 1969 Zoster Vaccines (1 of 2) 2001 COVID-19 Vaccine (2 - season) 2024 01/24/2021 Influenza Vaccine (#1) 2024 3, 01/15/2022, 12/12/2020, Additional history exists DTaP,Tdap,and Td Vaccines (3 - Td or Tdap) 11/10/2029 11/11/2019, 05/28/2009 Pneumococcal Vaccine, 50+ Years Completed 12/27/2018, 06/05/2016, 04/19/2008 HPV Vaccines Aged Out No longer eligi ble based on patient's age to complete this topic Hepatitis A Vaccines Aged Out No long er eligible based on patient's age to complete this topic Meningococcal Vaccine Aged Out No dolores sae eligible based on patient's age to complete this topic
== END 2024-12-14 10:02 | disposition home or self-care (01) ==
PROVIDERS: PCP Internal Medicine; Referring Provider Family Medicine; Visit Provider Registered Nurse
DX: G40.209 Localization-related (focal) (partial) symptomatic epilepsy and epileptic syndromes with complex partial seizures, not intractable, without status epilepticus (principal); E87.1 Hypo-osmolality and hyponatremia
CPT/HCPCS: 99214